=== PATIENT | female | born 1975 | race Caucasian/White ===

== ENCOUNTER 2020-03-25 17:34 | Outpatient (CLI) | payer OTHER, SELFPAY ==
--- NOTE | ~2020-03-25 | MM_ITS ---
EXAMINATION: MM screening [facility] BI w dragan HISTORY: Screening mammogram TECHNIQUE: Craniocaudal and mediolateral oblique 3-D tomosynthesis images were obtained and synthetic 2-D images were generated. CAD analysis was submitted and interpreted. COMPARISON: 10/04/2018, 09/14/2017, 07/21/2016, 07/14/2015 BREAST PARENCHYMAL COMPOSITION: There are scattered areas of fibroglandular density. FINDINGS: RIGHT BREAST: There is no evidence of suspicious mass, calcification, or architectural distortion to suggest malignancy. There has been no significant interval change. LEFT BREAST: There is a possible mass in the middle third of the central breast. No suspicious calcif ication or architectural distortion are identified. IMPRESSION: 1. Possible left breast mass. 2. Additional mammographic views and possible breast ultrasound are recommended. BI-RADS Category 0: Incomplete: Needs additional imaging evaluation. Reviewed, dictated and finalized at location A. TH HACKER IMPRESSION: 1. Possible left breast mass. 2. Additional mammographic views and possible breast ultrasound are recommended . BI-RADS Category 0: Incomplete: Needs additional imaging evaluation.
== END 2020-03-25 17:35 | disposition home or self-care (01) ==
LOC: ANHIMG 17:38
PROVIDERS: PCP Family Medicine Adolescent Medicine; Visit Provider Nurse Practitioner
DX: Z12.31 Encounter for screening mammogram for malignant neoplasm of breast (principal); R92.8 Other abnormal and inconclusive findings on diagnostic imaging of breast
CPT/HCPCS: 77063; 77067

== ENCOUNTER 2020-04-22 13:02 | Outpatient (CLI) | payer OTHER, SELFPAY ==
--- NOTE | ~2020-04-22 | MM_ITS ---
EXAMINATION: MM diagnostic mammo unilat LT HISTORY: Possible left breast mass on screening mammogram TECHNIQUE: Additional 3-D tomosynthesis images of the left breast were performed and synthetic 2-D im ages were generated. CAD analysis was submitted and interpreted. COMPARISON: 03/25/2020, 10/04/2018, 09/14/2017 FINDINGS: There is a return to baseline fibroglandular appearance with spot compression in the area q uestioned on screening mammogram. No suspicious mass, calcification, or architectural distortion are identified. IMPRESSION: 1. No mammographic evidence of malignancy. 2. Recommend routine screening mammography in one year. BI-RADS Category 1: Negative Reviewed, dictated and finalized at location A. OR CORE JAVA DEVELOPER
== END 2020-04-22 13:03 | disposition home or self-care (01) ==
LOC: ANHIMG 13:04
PROVIDERS: PCP Family Medicine Adolescent Medicine; Visit Provider Obstetrics & Gynecology Gynecology
DX: R92.8 Other abnormal and inconclusive findings on diagnostic imaging of breast (principal)
CPT/HCPCS: 77065

== ENCOUNTER 2021-07-16 11:03 | Outpatient (CLI) | payer OTHER, SELFPAY ==
--- NOTE | ~2021-07-16 | MM_ITS ---
EXAMINATION: MM screening [facility] BI w dragan HISTORY: Screening mammogram TECHNIQUE: Craniocaudal and mediolateral oblique 3-D tomosynthesis images were obtained and synthetic 2-D images were generated. CAD analysis was submitted and interpreted. COMPARISON: April 22, 2020, March 25, 2020, October 04, 2018 bilateral screening mammogram examinatio ns BREAST PARENCHYMAL COMPOSITION: The breasts are heterogeneously dense, which may obscure small masses . FINDINGS: There is no evidence of suspicious mass, calcification, or architectural distortion to sugg est malignancy in either breast. There has been no suspicious interval change. IMPRESSION: 1. No mammographic evidence of malignancy. 2. Recommend routine screening mammography in one year. BI-RADS Category 1: Negative Reviewed, dictated and finalized at location A.
== END 2021-07-16 11:04 | disposition home or self-care (01) ==
LOC: ANHIMG 11:05
PROVIDERS: PCP Family Medicine Adolescent Medicine; Visit Provider Nurse Practitioner
DX: Z12.31 Encounter for screening mammogram for malignant neoplasm of breast (principal)
CPT/HCPCS: 77063; 77067

== ENCOUNTER 2021-09-09 16:20 | Outpatient (CLI) | payer OTHER, SELFPAY ==
--- NOTE | ~2021-09-09 | US_ITS ---
EXAMINATION: US pelvic complete w TV DATE: 09/09/2021 17:17 INDICATION: Pelvic pain TECHNIQUE: Multiple transabdominal and endovaginal sonographic images of the pelvis were obtained. COMPARISON: None. FINDINGS: The uterus measures 8.0 x 4.5 x 5.2 cm. The endometrial complex measures 7 mm. The right ov minnie measures 3.5 x 2.8 x 3.7 cm and contains a 3 cm cyst. The left ovary measures 2.6 x 1.9 x 2.0 cm. There is normal vascular flow in the ovaries. There is no free fluid in the pelvis. IMPRESSION: 1. No sonographic correlate for the patient's symptoms. Reviewed, dictated and finalized at location F.
== END 2021-09-09 16:21 | disposition home or self-care (01) ==
PROVIDERS: PCP Family Medicine Adolescent Medicine; Visit Provider Nurse Practitioner
DX: R10.2 Pelvic and perineal pain (principal)
CPT/HCPCS: 76830; 76856

== ENCOUNTER 2022-04-13 16:41 | Outpatient (CLI) | payer OTHER, SELFPAY ==
--- NOTE | ~2022-04-13 | MR_ITS ---
MRI of the cervical spine Clinical History: Radiculopathy Technique: Axial T2-weighted and gradient images, and sagittal T1-weighted, T2-weighted, and STIR chrissy ges were acquired. Findings: There is no fracture or subluxation of the cervical spine. Vertebral bodies maintain normal height and alignment. No bone marrow signal abnormality seen. At C2-C3 and C3-C4, there is no disc bulge or herniation. No spinal canal stenosis, cord compression, or neural foraminal narrowing at these levels. At C4-C5, there is minimal disc bulge. No spinal canal stenosis, cord compression, or neural foramina l narrowing. At C5-C6, diffuse disc bulge results in mild canal stenosis and minimal flattening of the ventral cor d. There is right neural foraminal narrowing. Left neural foramen preserved. At C6-C7, there is small central disc protrusion. No spinal canal stenosis, cord compression, or neur al foraminal narrowing. No abnormal signal seen in the spinal cord. Paravertebral soft tissues are unremarkable. Impression: Mild degenerative spondylosis, particularly at C5-C6, as detailed above. Reviewed, dictated and finalized at [facility]. ROLLED AREA CHECKER Impression: Mild degenerative spondylosis, particularly at C5-C6, as detailed above.
== END 2022-04-13 16:42 | disposition home or self-care (01) ==
LOC: ANHIMG 16:43
PROVIDERS: PCP Family Medicine Adolescent Medicine; Visit Provider Family Medicine Adolescent Medicine
DX: M47.892 Other spondylosis, cervical region (principal)
CPT/HCPCS: 72141

== ENCOUNTER 2023-01-08 15:03 | Outpatient (CLI) | payer OTHER, SELFPAY ==
--- NOTE | ~2023-01-08 | XR_ITS ---
EXAMINATION: XR chest 2V Exam Date/Time: 01/08/2023 15:10 CDT HISTORY: R06.00 - Dyspnea, unspecified, SOB X1wk Comparison: 12/04/2015. RESULT: Lines, tubes, and devices: None. Lungs and pleura: Clear. Cardiomediastinal silhouette: Stable. Other: No acute osseous or upper abdominal finding. IMPRESSION: No acute cardiopulmonary process. Reviewed, dictated and finalized at location K.
[2023-01-08 16:47] LABS: Basophils Absolute Auto 0.1 K/mm3 (0.0-0.1); Basophils Percent Auto 0.7 % (0.2-1.2); Eosinophils Absolute Auto 0.3 K/mm3 (0-0.3); Eosinophils Percent Auto 2.5 % (0-4.4); Hematocrit 40.4 % (37.0-47.0); Hemoglobin 12.8 g/dL (12.0-15.0); Immature Granulocyte Absolute 0.02 K/mm3 (0.00-0.031); Immature Granulocyte Percent A 0.2 % (0-0.5); Lymphocytes Absolute Auto 2.56 K/mm3 (0.9-3.2); Lymphocytes Percent Auto 23.5 % (18.3-44.2); Mean Corpuscular HGB Conc 31.7 g/dl (32-36); Mean Corpuscular Hemoglobin 29.8 pg (26-34); Mean Platelet Volume 11.4 fl (7.4-10.4); Monocytes Absolute Auto 0.8 K/mm3 (0.1-0.6); Monocytes Percent Auto 7.7 % (2.6-8.5); Neutrophils Absolute Auto 7.1 K/mm3 (1.3-6.7); Neutrophils Percent Auto 65.4 % (45.5-73.1); Platelet Count Result 313 k/mm3 (150-375); Red Cell Distribution Width 12.5 % (11.5-14.5); White Blood Count 10.9 K/mm3 (4.5-10.0)
[2023-01-08 16:53] LABS: Alanine Aminotransferase 49 U/L (6-35); Albumin Level 4.5 g/dL (3.5-5.1); Alkaline Phosphatase 77 U/L (38-126); Anion Gap 8 mmol/L (8-16); Aspartate Amino Transferase 31 U/L (14-36); Bilirubin,Total 0.5 mg/dL (0.2-1.3); Blood Urea Nitrogen 14 mg/dL (7-17); Calcium 9.5 mg/dL (8.4-10.2); Carbon Dioxide 25 mmol/L (22-30); Chloride 103 mmol/L (98-107); Estimated Glomerular Filt Rate > 60; Glucose 88 mg/dL (65-110); Potassium 3.4 mmol/L (3.4-5.0); Sodium 136 mmol/L (137-145)
== END 2023-01-08 15:04 | disposition home or self-care (01) ==
LOC: ANHIMG 15:05
PROVIDERS: PCP Family Medicine Adolescent Medicine; Visit Provider Nurse Practitioner Family
DX: R06.00 Dyspnea, unspecified (principal); R06.89 Other abnormalities of breathing
CPT/HCPCS: 36415; 71046; 80053; 84443; 85025

== ENCOUNTER 2023-02-09 09:30 | Outpatient (CLI) | payer OTHER, SELFPAY ==
--- NOTE | ~2023-02-09 | MM_ITS ---
EXAMINATION: MM screening [facility] BI w dragan HISTORY: Screening mammogram TECHNIQUE: Craniocaudal and mediolateral oblique 3-D tomosynthesis images were obtained and synthetic 2-D images were generated. Bilateral rotated lateral CC views. The CAD analysis was submitted and interpreted. COMPARISON: July 16, 2021 bilateral screening mammogram April 22, 2020 diagnostic left mammogram March 25, 2020, October 04, 2018 bilateral screening mammogram examinations BREAST PARENCHYMAL COMPOSITION: There are scattered areas of fibroglandular density. FINDINGS: There is no evidence of suspicious mass, calcification, or architectural distortion to sugg est malignancy in either breast. There has been no suspicious interval change. IMPRESSION: 1. No mammographic evidence of malignancy. 2. Recommend routine screening mammography in one year. BI-RADS Category 1: Negative Reviewed, dictated and finalized at location A. [place] OPERATIONS MANAGER
== END 2023-02-09 09:31 | disposition home or self-care (01) ==
LOC: ANHIMG 09:33
PROVIDERS: PCP Family Medicine Adolescent Medicine; Visit Provider Advanced Practice Midwife
DX: Z12.31 Encounter for screening mammogram for malignant neoplasm of breast (principal)
CPT/HCPCS: 77063; 77067

== ENCOUNTER 2023-02-12 17:40 | Outpatient (CLI) | payer OTHER, SELFPAY ==
--- NOTE | ~2023-02-12 | XR_ITS ---
EXAMINATION: XR chest 2V DATE: 02/12/2023 17:58 INDICATION: 2 months of dyspnea and wheezing TECHNIQUE: PA and lateral views of the chest were obtained. COMPARISON: Chest radiograph dated 01/05 06/08 and 12/04/[address] dated 12/05/2015 FINDINGS: Unchanged mild opacity at the left lower lung zone corresponding to chronic atelectasis/scarring at t he lingula on prior CT. No new airspace opacities, pulmonary edema, pleural effusion or pneumothorax. The cardiomediastinal silhouette is normal. Moderate thoracic spondylosis. IMPRESSION: 1. Unchanged chronic mild lingular atelectasis/scarring. No acute cardiopulmonary disease. Reviewed, dictated and finalized at location A. ROSTOMAL THERAPY NURSE IMPRESSION: 1. Unchanged chronic mild lingular atelectasis/scarring. No acute cardiopulmona ry disease.
== END 2023-02-12 17:41 | disposition home or self-care (01) ==
PROVIDERS: PCP Family Medicine Adolescent Medicine; Visit Provider Family Medicine Adolescent Medicine
DX: R06.00 Dyspnea, unspecified (principal); R06.89 Other abnormalities of breathing
CPT/HCPCS: 71046

== ENCOUNTER 2024-04-04 15:37 | Outpatient (CLI) | payer OTHER, SELFPAY ==
--- NOTE | ~2024-04-04 | MM_ITS ---
EXAMINATION: MM screening [facility] BI w dragan HISTORY: Screening TECHNIQUE: Craniocaudal and mediolateral oblique 3-D tomosynthesis images were obtained and synthetic 2-D images were generated. CAD analysis was submitted and interpreted. COMPARISON: Comparison to multiple prior studies sequentially, with oldest reviewed study dated 08/18. BREAST PARENCHYMAL COMPOSITION: Not dense: There are scattered areas of fibroglandular density. FINDINGS: There is no evidence of suspicious mass, calcification, or architectural distortion to sugg est malignancy in either breast. There has been no suspicious interval change. IMPRESSION: 1. No mammographic evidence of malignancy. 2. Recommend routine screening mammography in one year. BI-RADS Category 2: Benign finding(s). Reviewed, dictated and finalized at location A. OFILM TECHNICIAN
== END 2024-04-04 15:38 | disposition home or self-care (01) ==
LOC: ANHIMG 15:55
PROVIDERS: PCP Family Medicine Adolescent Medicine; Visit Provider Nurse Practitioner
DX: Z12.31 Encounter for screening mammogram for malignant neoplasm of breast (principal)
CPT/HCPCS: 77063; 77067

== ENCOUNTER 2024-07-31 17:46 | Emergency (ER) | payer OTHER, SELFPAY ==
--- NOTE | ~2024-07-31 | CT_ITS ---
CT cervical spine wo con Ordering provider: Cary Whitehead APRN History: . neck pain . Comparison: None. Technique: CT of the cervical spine was performed without contrast. Sagittal and coronal reformatted images were also obtained and reviewed. Automated exposure control and iterative reconstruction ana laura hnique were employed. The dose-length product was 415.07 mGy-cm. FINDINGS: VERTEBRAE: No subluxation or acute fracture. The occipital condyles are intact. Degenerative changes of the spine. DISC SPACES: Narrowing of the disc C5-C6. Osteoarthritic changes of the uncovertebral joints at the s mira level. Narrowing of the right foramen at the level of C5-C6. PARASPINOUS SOFT TISSUES: Normal. IMPRESSION: No acute osseous abnormality cervical spine. Degenerative disc disease at the level of C5-C6. Reviewed, dictated and finalized at location A.
--- NOTE | ~2024-07-31 | CT_ITS ---
CT thoracic spine wo con Ordering provider: Cary Whitehead APRN History: . upper back pain . Comparison: None. Technique: CT thoracic spine without contrast. Automated exposure control and iterative reconstructi on technique were employed. The dose-length product was 1194.43 mGy-cm. FINDINGS: VERTEBRAE: Normal height and alignment. No subluxation or visible acute fracture. Degenerative change s of the spine. DISC SPACES: Well maintained. . No significant stenosis as visualized. PARASPINOUS SOFT TISSUES: Multilevel narrowing of the disc spaces in the mid and lower thoracic area. Stone in the right kidney. IMPRESSION: No acute osseous abnormality of the thoracic spine. Multilevel degenerative disc disease. Right kidney stone. Reviewed, dictated and finalized at location A.
--- NOTE | ~2024-07-31 | XR_ITS ---
XR shoulder RT min 2V Ordering provider: Cary Whitehead APRN History: . R shoulder pain . Comparison: None. FINDINGS: BONES: No acute fracture or dislocation. JOINT SPACES: The acromioclavicular joint is normal. The glenohumeral joint is normal. SOFT TISSUES: Normal. IMPRESSION: No acute osseous abnormality right shoulder. Reviewed, dictated and finalized at location A.
--- OUTSIDE RECORDS SUMMARY | 2024-07-31 17:48 | XMS_ITS | Clinical Summary ---
Author Organization [facility] at the Medical Office Building Address [address] [place] [phone] Care Team Providers Care Synthetic Chemist Name Role Phone Simone Rosario MD Primary Care Prov ider Allergies No known active allergies Medications sertraline (ZOLOFT) 50 mg tablet Take 75 mg by mouth daily 10/04/2020 Active ergocalciferol (VITAMIN D) 50,000 unit capsule TAKE 1 CAPSULE BY MOUTH ONCE A WEEK 10/04/2020 Active Active Problems Problem Noted Date Diagnosed Date Acquired trigger finger 10/26/2020 Overview (10/26/2020): Added automatically from request for surgery [id number] Surgical History Surgery Date Site/Laterality Comments CARPAL TUNNEL RELEASE Right Social History Tobacco Use Types Packs/Day Years Used Date Smoking Tobacco: Never AUDIT-C Answer Date Recorded Q1: How often do you have a drink containing alc ohol? 2-4 times a month 11/10/2020 Q2: How many drinks containi ng alcohol do you have on a typical day when you are drinking? 3 or 4 11/10/2020 Q3: How often do you have si x or more drinks on one occasion? 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 Gender Identity Not on file Sexual Orientation Not on file Obstetrics History Last Filed Vital Signs Vital Sign Reading Time Taken Comments Blood Pressure 114/73 11/10/2020 8:28 AM CDT Pulse 71 11/10/2020 8:28 AM CDT Temperature 36.2 C (97.2 F) 11/10/2020 8:10 AM CDT Respiratory Rate 18 11/10/2020 8:28 AM CDT Oxygen Saturation 98% 11/10/2020 8:28 AM CDT Inhaled Oxygen Concentration - - Weight - - Height - - Body Mass Index - - Plan of Treatment Not on file Insurance Care Teams Synthetic Chemist Relationship Specialty Start Date End Date Simone Rosario MD [address] [place] [id number] PCP - General Family Medicine 10/25/20
--- OUTSIDE RECORDS SUMMARY | 2024-07-31 17:48 | XMS_ITS | Referral Summary ---
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
[2024-07-31 18:00] VITALS: BP 130/76; PULSE 79; RESP 16; TEMP 36.8; O2SAT 98
--- NOTE | 2024-07-31 18:54 | ED_ITS ---
HPI - Extremity Problem General Chief complaint: Extremity Problem,Nontraumatic Stated complaint: Right shoulder [id number] Time Seen by Provider: 07/31/24 18:42 History of Present Illness HPI Narrative: Patient is a 49-year-old female presents to the ER with complaints right shoulder pain. She reports the pain starts near the middle of her right upper back, radiates to her shoulder, and radiates down her arm. Patient endorses right arm/hand numbness and tingling. She reports yesterday she was pulling weeds and is unsure if she further injured the area. Patient reports she has had right shoulder problems for years and was diagnosed with a pinched nerve approximately 3 years ago. She denies any other medical history relevant to this ER visit. Related Data Allergies Allergy/AdvReac Type Severity Reaction Status Date / Time No Known Allergies Allergy Verified 07/31/24 17:47 Review of Systems Review of Systems: All systems reviewed & are unremarkable except as noted in HPI and below PMFSH Surgical History Surgical History History of bilateral tubal ligation (2016) Hx of carpal tunnel repair Family History Family History Other Diabetes mellitus Malignant neoplasm Social History Social History Smoking status: Never smoker Alcohol intake: current Drinks per week: 6 Exam Narrative: GENERAL: Well appearing, well-nourished, non-toxic, in no acute distress. HEAD: Normocephalic, atraumatic. NECK: Supple. No adenopathy, no masses. RESPIRATORY: Airway patent, respirations nonlabored. Clear to auscultation bilaterally, no rales, rhonchi, wheezing. CARDIOVASCULAR: Regular rate and rhythm without murmurs, rubs, or gallops. Peripheral pulses 2+ and equal bilaterally. ABDOMINAL: Soft, nontender, nondistended, no hepatosplenomegaly. Normoactive BS. MUSCULOSKELETAL: Moves all extremities. Strength/ROM intact without gross deformities. + pain with 45 degree extension, Negative drop arm test, no increased pain with adduction, + pain with abduction SKIN: Warm, dry, normal color. No rashes. NEURO: A&O X3. Speech clear. Cranial nerves II-XII intact. No ataxic movements. PSYCHIATRIC: Appropriate mood and affect. Normal interaction. Course Vital Signs Vital signs: Vital Signs Temperature 36.8 C 07/31/24 18:00 Pulse Rate 79 07/31/24 18:00 Respiratory Rate 16 07/31/24 18:00 Blood Pressure 130/76 07/31/24 18:00 Pulse Oximetry 98 07/31/24 18:00 Oxygen Delivery Room Air 07/31/24 18:00 Temperature 36.8 C 07/31/24 18:00 Pulse Rate 79 07/31/24 18:00 Respiratory Rate 16 07/31/24 18:00 Blood Pressure 130/76 07/31/24 18:00 Pulse Oximetry 98 07/31/24 18:00 Oxygen Delivery Room Air 07/31/24 18:00 MDM - Extremity (Nontraumatic) MDM Narrative Medical decision making narrative: Patient is a 49-year-old female presents to the ER with complaints right shoulder pain. She reports the pain starts near the middle of her right upper back, radiates to her shoulder, and radiates down her arm. Patient endorses right arm/hand numbness and tingling. She reports yesterday she was pulling weeds and is unsure if she further injured the area. Patient reports she has had right shoulder problems for years and was diagnosed with a pinched nerve approximately 3 years ago. She denies any other medical history relevant to this ER visit. Imaging Ordered: CT thoracic spine, CT cervical spine, right shoulder x-ray Medications Ordered: Toradol 60 mg IM, prednisone 40 mg p.o. Results: R shoulder x-ray indicates No acute osseous abnormality right shoulder. Ct cervical spine indicates No acute osseous abnormality cervical spine. Degenerative disc disease at the level of C5-C6. CT thoracic spine indicates No acute osseous abnormality of the thoracic spine. Multilevel degenerative disc disease. Right kidney stone. Diagnosis: degenerative disc disease, R shoulder pain Consults: orthopedic surgery (outpatient) Patient Education/Shared MDM: Results of imaging shared with patient. She endorses mild improvement of symptoms following medication administration. Simon murillo strongly advised to follow-up with her PCP and orthopedic surgery as soon as possible. She will be discharged home with a prescription for Prednisone. Pt offered a shoulder immobilizer but she says she already has one at home. Strict return precautions provided. Patient verbalized understanding and is in agreement with plan. Vital signs stable at time of discharge. All questions answered. Differential Diagnosis Differential diagnosis: Likely other (Shoulder strain, shoulder sprain, degenerative disc disease, cervical strain) Discharge Plan Discharge Clinical Impression: Right shoulder pain, Degenerative disc disease, Cervical radiculopathy Patient Disposition: Home Condition: Stable Instructions: Antibiotic Form, Shoulder Pain (ED) Patient Language: Chinese Prescriptions: New prednisone 50 mg tablet 50 mg PO DAILY Qty: 5 0RF lidocaine 5 % adhesive patch,medicated 1 patch topical DAILY Qty: 30 0RF Rx Instructions: leave on most painful area for up to 12 hrs No Action diclofenac sodium 75 mg tablet,delayed release (DR/EC) 75 mg PO BID Qty: 60 8RF cyclobenzaprine 10 mg tablet 10 mg PO TID PRN (Reason: muscle spasm) Qty: 30 1RF Rx Instructions: Muscle relaxant hydrocodone-acetaminophen 5-325 mg tablet 1 tablet PO Q6H PRN (Reason: pain) Qty: 30 0RF rizatriptan 10 mg tablet See Rx Instructions PO .COMPLEX Qty: 20 12RF Rx Instructions: take 1 tab at onset of headache; if no relief may repeat 1 tab after at least 2 hrs; max = 3 tabs/24 hr PO sertraline [Zoloft] 50 mg tablet 75 mg PO DAILY Qty: 45 3RF Follow-up/Referrals: Steven Martinez MD [Physician] - (orthopedics) Simone Rosario MD [Primary Care Provider] - Time of Disposition: 22:52
--- OUTSIDE RECORDS SUMMARY | 2024-07-31 19:28 | XMS_ITS | Clinical Summary ---
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
--- OUTSIDE RECORDS SUMMARY | 2024-07-31 19:28 | XMS_ITS | Referral Summary ---
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
[2024-07-31] MEDS: predniSONE 20 MG TABLET 40 MG PO (19:39)
[2024-07-31] MEDS: KETOROLAC (*BKC) 60 MG/2 ML VIAL IM (19:39)
[2024-07-31 23:17] VITALS: BP 137/76; PULSE 76; RESP 16; TEMP 36.8; O2SAT 98
== END 2024-07-31 23:18 | disposition home or self-care (01) ==
PROVIDERS: Emergency Provider Registered Nurse; PCP Family Medicine Adolescent Medicine
DX: M25.511 Pain in right shoulder (principal); M50.122 Cervical disc disorder at C5-C6 level with radiculopathy
CPT/HCPCS: 72125; 72128; 73030; 96372; 99284; J1885; J7512

== ENCOUNTER 2024-10-05 15:26 | Emergency (ER) | payer OTHER, SELFPAY ==
[2024-10-05 15:32] VITALS: BP 147/84; PULSE 90; RESP 18; TEMP 36.6; O2SAT 99
--- NOTE | 2024-10-05 15:57 | ED.SKABFB ---
HPI - Skin/Abscess/Foreign Bdy General Chief complaint: Skin/Abscess/Foreign Body Stated complaint: irritation on face/swollen lymph nodes Time Seen by Provider: 10/05/24 15:45 Source: patient and RN notes reviewed Mode of arrival: ambulatory Limitations: no limitations History of Present Illness HPI narrative: 49-year-old female presents Express Care complaining of headache and rash to her right side of her forehead. Patient said that she initially started with a headache proximally 5 days ago in take medications for it. Next states she woke up with a vesicular papular rash the right side of her forehead extending up into the the anterior part the right side of her scalp. She also reported tingling sensation to her right side of her forehead. Patient also reporting swollen lymph nodes on the right side of her neck. She denies any other rash elsewhere. Patient denies any vision changes, eye pain, dizziness, headedness, upper respiratory symptoms, cough, or any ear symptoms. Patient said she had chickenpox as a child. Related Data Allergies Allergy/AdvReac Type Severity Reaction Status Date / Time No Known Allergies Allergy Verified 08/20/24 15:04 Review of Systems Review of Systems: CONSTITUTIONAL: Denies fever, chills, or sweats. EYES: Denies visual changes, redness, or discharge. ENT: Denies rhinorrhea, congestion, sore throat, or otalgia. CARDIOVASCULAR: Denies chest pain, palpitations, or edema. RESPIRATORY: Denies cough or dyspnea. GASTROINTESTINAL: Denies abdominal pain, nausea, vomiting, or diarrhea. GENITOURINARY: Denies dysuria or hematuria. SKIN: Positive for rash. Negative for itching. MUSCULOSKELETAL: Denies back pain, joint pain, or myalgia. NEUROLOGIC: Positive for headaches. Negative for numbness and weakness. PSYCHIATRIC: Denies anxiety or depression. All other systems reviewed are negative, except as documented in HPI. [facility] Past Medical History Medical History Head ache Surgical History Surgical History History of bilateral tubal ligation (2016) Hx of carpal tunnel repair Family History Family History Mother Lung cancer Other Diabetes mellitus Malignant neoplasm Social History Social History Smoking status: Never smoker Alcohol intake: current Alcohol use details: occasional Substance use: never Substance use type: does not use Do You Feel Safe in your Home?: Yes Lack of Transportation: No Lack of Food: Never True Current Housing: I Have Housing Concerned About Future Housing: No Difficulty Paying Gas/Electric Bills: No Difficulty Paying for Meds: No Currently Unemployed: Decline to Answer Education: High School Diploma/GED Difficulty w/ Childcare or Family Care: No Comments At the time of my signature, I reviewed and agree with the nursing past medical, surgical, social, and family history. There is no relevant family history pertinent to the patient complaint. Exam Narrative: GENERAL: This is a well-nourished, well-developed adult, in no apparent distress. They are non ill-appearing, nontoxic appearing. HEAD: normocephalic, atraumatic. EYES: Sclera clear/white. Conjunctiva normal. Vision is grossly intact. Extraocular movements intact EARS: External ears normal, auditory canals clear and without drainage, TMs normal without perforation. Hearing grossly intact. Pupils PERRLA. Wood's lamp exam of right eye with fluorescein stain. Unremarkable. No dendritic lesions, corneal abrasions, ulcerations, or any other lesions appreciated. NOSE: External nose normal with no obvious nasal discharge, nasal turbinates without redness, no rhinorrhea. THROAT: Mucous membranes moist, posterior pharynx clear, without erythema or swelling. Uvula midline. NECK: Neck supple, non-tender mild right-sided cervical lymphadenopathy, masses or thyromegaly. CARDIOVASCULAR: Regular rate and rhythm without murmurs, gallops, or rubs. RESPIRATORY: Clear to auscultation. Breath sounds equal bilaterally. No wheezes, rales, or rhonchi. SKIN: Erythematous papular and vesicular rash to the right side of patient's forehead this rashes not cross the midline. The rash extends up to the anterior right side of the scalp. Rashes nontender to palpate. No exudate, no area of fluctuance, no induration. One vesicular lesion to the patient's right eyelid. NEURO: awake, alert, and oriented to person, place and time. There were no obvious focal neurologic abnormalities. EXTREMITIES: No joint tenderness, effusion, or edema noted. Course Course Emergency Course: Portions of this record may have been created with voice recognition software Level of Care: Express Care Visit Vital Signs Vital signs: Vital Signs Temperature 97.9 F 10/05/24 15:32 Pulse Rate 90 10/05/24 15:32 Respiratory Rate 18 10/05/24 15:32 Blood Pressure 147/84 H 10/05/24 15:32 Pulse Oximetry 99 10/05/24 15:32 Oxygen Delivery Room Air 10/05/24 15:32 Temperature 97.9 F 10/05/24 15:32 Pulse Rate 90 10/05/24 15:32 Respiratory Rate 18 10/05/24 15:32 Blood Pressure 147/84 H 10/05/24 15:32 Pulse Oximetry 99 10/05/24 15:32 Oxygen Delivery Room Air 10/05/24 15:32 Reviewed MDM - Skin/Abscess/Foreign Bdy MDM Narrative Medical decision making narrative: Likely patient has herpes zoster. Rashes not crossed the midline and follows a dermatome. Wood's lamp exam of right eye is negative for any evidence of dendritic lesions, corneal abrasions, ulcerations, or any concerns. Prescribed patient valacyclovir. Strict ER precautions 2nd patient especially develops eye issues such as vision problems, eye pain, or any worsening symptoms. Discussed physical exam findings. Advised supportive measures and signs/symptoms to go to the ER. Pt is appropriate for outpt treatment and f/u. Differential Diagnosis Differential diagnosis: Likely herpes zoster, cellulitis, eczema and contact dermatitis Critical Care Time Critical Care Time Critical Care Time: No Discharge Plan Discharge Clinical Impression: Herpes zoster Qualifiers: Herpes zoster complications: unspecified herpes zoster complication Qualified Code(s): B02.8 - Zoster with other complications Patient Disposition: Home Condition: Stable Instructions: Shingles (ED) Additional Instructions: Take valacyclovir as directed. It Is likely you have shingles. Your are contagious until the lesions have crusted over. This is normally self-limiting condition resolve within 7-10 days. You May take Tylenol or ibuprofen as needed for pain. If you developed any vision problems, eye pain, worsening redness, swelling, fevers, or any other concerns please go to the ER immediately. Patient Language: Mongolian Prescriptions: New valacyclovir 1 gram tablet 1,000 mg PO TID 7 Days Qty: 21 0RF No Action rizatriptan 10 mg tablet See Rx Instructions PO .COMPLEX Qty: 20 12RF Rx Instructions: take 1 tab at onset of headache; if no relief may repeat 1 tab after at least 2 hrs; max = 3 tabs/24 hr PO sertraline [Zoloft] 50 mg tablet 75 mg PO DAILY Qty: 45 3RF gabapentin 600 mg tablet 600 mg PO QHS Qty: 60 1RF hydrocodone-acetaminophen 5-325 mg tablet 1 tablet PO Q6H PRN (Reason: pain) Qty: 30 0RF Follow-up/Referrals: Simone Rosario MD [Primary Care Provider] - Time of Disposition: 16:19
[2024-10-05] MEDS: TETRACAINE HCL 0.5% OPHTH SOLN 4 ML BTL RIGHT EYE (16:06)
[2024-10-05] MEDS: DACRIOSE EYE IRRIGATION 118 ML BOTTLE RIGHT EYE (16:07)
[2024-10-05] MEDS: FLUORESCEIN SOD 1 MG/STRIP RIGHT EYE (16:09)
== END 2024-10-05 16:20 | disposition home or self-care (01) ==
PROVIDERS: PCP Family Medicine Adolescent Medicine
DX: B02.8 Zoster with other complications (principal)
CPT/HCPCS: 99213; A9270; G0463

== ENCOUNTER 2024-10-08 13:32 | Outpatient (CLI) | payer OTHER, SELFPAY ==
--- NOTE | ~2024-10-08 | MMUS_ITS ---
EXAMINATION: MM diagnostic cynthia RT w dragan, US breast RT limited INDICATION: 49-year old female; presents for evaluation of palpable lump which she felt 3-4 months ag o in the inferior right breast. Patient also stated her care provider felt a lump at 7:00 around the areolar, 4-5 o'clock and at 9:00 locations. Patient cannot identify any breast palpable lump today. COMPARISON: 04/04/2024 through 06/07/2012 TECHNIQUE: Digital breast tomosynthesis True lateral and CC and MLO views of the RIGHT breast were ob tained with computer-aided detection to assist in interpretation of the study. Targeted ultrasound of the areas of palpable lumps was completed. FINDINGS: The breasts are heterogeneously dense, which may obscure small masses. There is no evidence of suspicious mass, calcifications or architectural distortion seen in either br east. Ultrasound was performed for further evaluation. RIGHT BREAST ULTRASOUND FINDINGS: Targeted evaluation of the areas of concern was completed. At 7:00 near subareolar, corresponding to an area of palpable lump there is a 0.2 x 0.3 x 0.1 cm hypoechoic mass with circumscribed margins. At 9:00, 2 cm from the nipple, in the general area of palpable lump, there is a simple cyst that irvin ure 0.3 x 0.4 x 0.3 cm. There is no sonographic correlate to area of palpable lump described at 5:00 to 6:00 locations. IMPRESSION: 1. Right breast complicated cyst at 7:00 is probably benign. 2. Right breast cyst at 9:00 which correlates to area of palpable lump. No further investigation nec essary. RECOMMENDATION: Short-term follow-up right breast ultrasound in 6 months. Clinical management of palpable lumps in the right breast. BI-RADS 3, PROBABLY BENIGN Reviewed, dictated and finalized at location B. IMPRESSION: 1. Right breast complicated cyst at 7:00 is probably benign. 2. Right breast cyst at 9:00 which correlates to area of palpable lump. No fur ther investigation necessary. RECOMMENDATION: Short-term follow-up right breast ultrasound in 6 months. Clinical management of palpable lumps in the right breast. BI-RADS 3, PROBABLY BENIGN
--- OUTSIDE RECORDS SUMMARY | 2024-10-08 13:38 | XMS_ITS | Referral Summary ---
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
--- OUTSIDE RECORDS SUMMARY | 2024-10-08 13:38 | XMS_ITS | Clinical Summary ---
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
== END 2024-10-08 13:33 | disposition home or self-care (01) ==
LOC: ANHIMG 13:33
PROVIDERS: PCP Family Medicine Adolescent Medicine; Visit Provider Nurse Practitioner
DX: N63.10 Unspecified lump in the right breast, unspecified quadrant (principal); R92.8 Other abnormal and inconclusive findings on diagnostic imaging of breast
CPT/HCPCS: 76642; 77061; 77065; G0279